=== PATIENT | female | born 2000 | race Caucasian/White ===

== ENCOUNTER 2019-12-11 23:13 | Emergency (ER) | payer SELFPAY ==
--- NOTE | ~2019-12-11 | XR_ITS ---
XR chest 2V DATE: 12/12/2019 00:23 INDICATION: Cough, difficulty breathing TECHNIQUE: PA and lateral views COMPARISON: None FINDINGS: Normal heart size. No hilar or mediastinal enlargement. No pulmonary infiltrate or consolid ation, pleural effusion or pulmonary vascular congestion or pneumothorax. IMPRESSION: No active cardiopulmonary disease Reviewed, dictated and finalized at location [facility]. [employer]
[2019-12-11 23:21] VITALS: BP 124/58; PULSE 130; RESP 16; TEMP 36.8; O2SAT 100
--- NOTE | 2019-12-12 00:01 | ED.URI ---
HPI - URI/Sore Throat General Chief Complaint: Upper Respiratory Infection Stated Complaint: im dying Time Seen by Provider: 12/11/19 23:24 Source: patient and RN notes reviewed Mode of arrival: ambulatory Limitations: no limitations History of Present Illness HPI Narrative: Pt is a 19 y/o female who presents to the ED with c/o flu-like symptoms starting this morning. She notes that she has had a cough, sinus congestion, severe body aches, nausea, and vomiting throughout the day today. Pt states that she also developed dysuria and intense diffuse back pain this afternoon. She currently denies any fever. Pt states that there is no chance of her being . MD elicited complaint: other (Flu-like symptoms) Onset (ago): day(s) (1) Associated symptoms: myalgias, nasal congestion, cough, nausea, vomiting, dysuria and other (diffuse back pain) Related Data Allergies Allergy/AdvReac Type Severity Reaction Status Date / Time No Known Allergies Allergy Unverified 12/25/17 09:09 Review of Systems Review of Systems: All systems reviewed & are unremarkable except as noted in HPI and below Constitutional: Constitutional: Reports body ache(s) and Denies fever(s) ENT: Reports nasal congestion Respiratory: Respiratory: Reports cough Gastrointestinal: Gastrointestinal: Reports nausea and Reports vomiting Genitourinary: Genitourinary: Reports dysuria Musculoskeletal: Musculoskeletal: Reports back pain (diffuse back pain) [facility] Past Medical History Medical History Healthy female Surgical History Surgical History History of ear surgery as child Social History Social History Smoking status: Never smoker Exam Const: General: cooperative, healthy appearing, comfortable, no acute distress, well developed, alert and awake; No confusion Orientation/consciousness: oriented to person, oriented to place, oriented to time, patient oriented x3 and No confusion Limitations: no limitations Neck: Neck: normal visual inspection Resp: Effort & Inspection: normal respiratory effort, able to speak in complete sentences, no respiratory distress and not tachypneic Auscultation: clear to auscultation bilaterally, no crackles, no rales, no rhonchi and no wheezes Cardio: Rate: regular rate Rhythm: regular rhythm GI: Inspection: normal to inspection GI Palp: No abdominal tenderness, Yes Soft to palpation, No Tenderness to palpation present (GI), No Guarding due to palpation present (GI), No Rigid due to palpation and No Rebound tenderness present Auscultation: normal bowel sounds : General: Yes no CVA tenderness Skin: General skin exam: normal color, no rashes or lesions noted, elasticity normal and turgor normal Neuro: General: oriented to person, oriented to place, oriented to time, patient oriented x3, tone normal, moves all extremities and No confusion Speech: No Abnormal speech present Sensory Exam: No Sensory deficit (Neuro) Extrem: General: normal to inspection, full ROM and capillary refill normal Psych: Appearance: grossly normal and well kempt Mental Status: mental status grossly normal Speech and movement: Normal speech and movement present Affect: normal affect Attitude: cooperative Thought process: Normal thought process present Thought content: Yes Normal thought content present Insight: Good insight present (Psych) Judgement: Good judgement present (Psych) Course Vital Signs Vital signs: Vital Signs Temperature 36.8 C 12/11/19 23:21 Pulse Rate 130 H 12/11/19 23:21 Respiratory Rate 16 12/11/19 23:21 Blood Pressure 124/58 L 12/11/19 23:21 Pulse Oximetry 100 12/11/19 23:21 Temperature 36.8 C 12/11/19 23:21 Pulse Rate 130 H 12/11/19 23:21 Respiratory Rate 16 12/11/19 23:21 Blood Pressure 124/58 L 12/11/19 23:21 Pulse Oximetry 100 12/11/19 23:21 MDM - URI/Sore Throat L
[2019-12-12 00:54] LABS: Add Urine Microscopic? YES; Appearance Urine Clear (Clear); Bacteria Urine Trace /hpf; Bilirubin Urine Negative (Negative); Blood Urine Negative (Negative); Color Urine Yellow (Yellow); Glucose Urine UA Negative (Negative); Ketones Urine 1+ mg/dL (Negative); Leukocyte Esterase Ur Negative LEU/UL (Negative); Mucus Urine Few /lpf; Nitrate Urine Negative (Negative); Protein Urine Negative (Negative); RBC Urine 0-2 /hpf (0-2); Specific Grav Ur 1.028 (1.001-1.035); Squamous Epithelial Cell Urine Few /hpf (Few); Urobilinogen Urine Negative mg/dL (<2.0)
== END 2019-12-12 01:08 | disposition home or self-care (01) ==
PROVIDERS: Emergency Provider Emergency Medicine
DX: J06.9 Acute upper respiratory infection, unspecified (principal)
CPT/HCPCS: 71046; 81001; 81025; 87804; 99283

== ENCOUNTER 2021-06-18 18:53 | Emergency (ER) | payer OTHER, SELFPAY ==
--- NOTE | ~2021-06-18 | US_ITS ---
US OB <=14 wk fetus w TV DATE: 06/18/2021 20:20 INDICATION: Vaginal bleeding in TECHNIQUE: Real-time imaging via transabdominal and transvaginal approaches COMPARISON: None FINDINGS: The uterus measures 9.3 centers height, 4.3 cm anteroposterior and 5.5 cm transverse dimens ion. An intrauterine gestational sac is identified. There is suboptimal hyperechogenicity consistent with suboptimal decidual reaction at the perimeter of the gestational sac pole is detected, measurin g 1.7 cm. No cardiac motion however is noted. Yolk sac is noted. There is heterogeneous hypoechoic appearance subchorionic hematoma Gooding-rump length of 1.73 cm is consistent with estimated gestational age of 8 weeks 1 day +/- 5 days with LOYDA of 01/27/2022 Right ovary 2.8 x 2.0 x 2.1 cm, 1.5 cm cyst. The left ovary is not visualized. No abnormal pelvic red e fluid collection. IMPRESSION: Subchorionic hematoma. No definite cardiac motion is apparent; recommend short-term follow-up ultrasound imaging to evaluate viability. Reviewed, dictated and finalized at [facility]. Reviewed, dictated and finalized at location [facility]. IMPRESSION: Subchorionic hematoma. No definite cardiac motion is apparent ; recommend short-term follow-up ultrasound imaging to evaluate viability .
[2021-06-18 18:55] VITALS: BP 151/100; PULSE 115; RESP 16; TEMP 37.3; O2SAT 99
--- NOTE | 2021-06-18 19:58 | PC.NURSE ---
Patient taken to US.
[2021-06-18 20:33] VITALS: BP 146/86; PULSE 104; RESP 18; O2SAT 100
[2021-06-18 20:46] LABS: Basophils Percent Auto 0.4 % (0.2-1.2); Eosinophils Absolute Auto 0.1 K/mm3 (0-0.3); Eosinophils Percent Auto 1.1 % (0-4.4); Hematocrit 37.7 % (37.0-47.0); Hemoglobin 12.1 g/dL (12.0-15.0); Immature Granulocyte Absolute 0.03 K/mm3 (0.00-0.031); Immature Granulocyte Percent A 0.3 % (0-0.5); Lymphocytes Absolute Auto 3.58 K/mm3 (0.9-3.2); Lymphocytes Percent Auto 38.5 % (18.3-44.2); Mean Corpuscular HGB Conc 32.1 g/dl (32-36); Mean Corpuscular Hemoglobin 24.5 pg (26-34); Mean Corpuscular Volume 76.3 fl (80-100); Mean Platelet Volume 11.1 fl (7.4-10.4); Monocytes Absolute Auto 0.5 K/mm3 (0.1-0.6); Monocytes Percent Auto 5.8 % (2.6-8.5); Neutrophils Percent Auto 53.9 % (45.5-73.1); Platelet Count Result 249 k/mm3 (150-375); Red Blood Count 4.94 M/mm3 (4.2-5.4); Red Cell Distribution Width 16.6 % (11.5-14.5); White Blood Count 9.3 K/mm3 (4.5-10.0)
[2021-06-18 21:04] LABS: Prothrombin Time 12.7 Seconds (11.1-14.7)
[2021-06-18 21:05] LABS: Partial Thromboplastin Time 26.9 SECONDS (22.3-36.8)
[2021-06-18 21:13] LABS: Alanine Aminotransferase 25 U/L (4-35); Albumin Level 4.4 g/dL (3.5-5.1); Alkaline Phosphatase 67 U/L (38-126); Anion Gap 11 mmol/L (8-16); Aspartate Amino Transferase 24 U/L (14-36); Bilirubin,Total 0.2 mg/dL (0.2-1.3); Blood Urea Nitrogen 11 mg/dL (7-17); Calcium 9.3 mg/dL (8.4-10.2); Carbon Dioxide 22 mmol/L (22-30); Chloride 102 mmol/L (98-107); Estimated CRCL calculation 177 ml/min; Estimated Glomerular Filt Rate > 60; Glucose 99 mg/dL (65-110); Potassium 3.5 mmol/L (3.4-5.0); Sodium 135 mmol/L (137-145)
--- NOTE | 2021-06-18 21:43 | ED.GENADULT ---
HPI - General Adult General Chief complaint: Vaginal Bleeding Stated complaint: miscarriage? Time Seen by Provider: 06/18/21 19:14 Source: patient Mode of arrival: ambulatory Limitations: no limitations History of Present Illness HPI narrative: Patient presents with chief complaint of vaginal bleeding that began on Sunday and has since increased. Patient states that she has informed her [employer] Dr. Saravia and she was told that it is normal to have the bleeding however when the bleeding increased on Sunday she was seen at [facility] ER. She reports imaging and hCG were told to be in normal levels. Patient states today she was in [place] and she began to have increase in bleeding and noticed a few blood clots with cramping so she became concerned and went to [facility] emergency room but the wait was too long so she left and presented to our emergency department. Patient is G2, P1. Patient has any fever, chills, vomiting, lethargy, purulent vaginal discharge. Related Data Allergies Allergy/AdvReac Type Severity Reaction Status Date / Time No Known Allergies Allergy Unverified 12/25/17 09:09 Review of Systems Review of Systems: CONSTITUTIONAL: Denies fever, chills, or sweats. EYES: Denies visual changes, redness, or discharge. ENT: Denies rhinorrhea, congestion, sore throat, or otalgia. CARDIOVASCULAR: Denies chest pain, palpitations, or edema. RESPIRATORY: Denies cough or dyspnea. GASTROINTESTINAL: Denies abdominal pain, nausea, vomiting, or diarrhea. GENITOURINARY: Reports vaginal bleeding denies dysuria or hematuria. SKIN: Denies rash or itching. MUSCULOSKELETAL: Denies back pain, joint pain, or myalgia. NEUROLOGIC: Denies headache, numbness, dizziness, or weakness. PSYCHIATRIC: Denies anxiety or depression. PMFSH Past Medical History Medical History (Updated 06/18/21 @ 22:13 by Gerardo Lozada PA-C) Healthy female Surgical History Surgical History History of ear surgery as child Social History Social History Smoking status: Never smoker Exam Narrative: GENERAL: Well-appearing, well-nourished, and in no acute distress. HEAD: Normocephalic, atraumatic. EYES: PERRLA and EOMI. NECK: Supple. No adenopathy or masses. CHEST: Clear to auscultation. No respiratory distress. No wheezes rales or rhonchi HEART: Regular rate and rhythm. No murmur heard. Normal peripheral pulses. ABDOMEN: Soft, nontender, nondistended, normal active bowel sounds. PELVIC: Mild to moderate bleeding from cervix. There is a few small blood clots noted in the vaginal canal. Cervix is closed. No tissue noted. EXTREMITIES: Normal range of motion. No edema. SKIN: Warm, dry, no rash. NEURO: No focal deficits. Alert and oriented x3. PSYCH: Normal mood and affect. Course Vital Signs Vital signs: Vital Signs Temperature 99.1 F 06/18/21 18:55 Pulse Rate 115 H 06/18/21 18:55 Respiratory Rate 16 06/18/21 18:55 Blood Pressure 151/100 H 06/18/21 18:55 Pulse Oximetry 99 06/18/21 18:55 Temperature 99.1 F 06/18/21 18:55 Pulse Rate 104 H 06/18/21 20:33 Respiratory Rate 18 06/18/21 20:33 Blood Pressure 146/86 H 06/18/21 20:33 Pulse Oximetry 100 06/18/21 20:33 Medical Decision Making MDM Narrative Medical decision making narrative: Consult with Dr. Arthur who is on-call for Dr. Saravia [employer]. It seems that with the patient being in week 8 and having prior heart activity did take the and not seen heart activity detected at this time that the is not viable. He states that have the patient go to her ultrasound appointment on Sunday and call their office to follow-up with Dr. Saravia for the next steps which would likely be a D&C. Patient has been instructed to return to emergency department if she has any profuse bleeding, dizziness, chest pain, shortness of breath or any other emergent
== END 2021-06-18 22:46 | disposition home or self-care (01) ==
PROVIDERS: Physician Assistant; Emergency Provider Emergency Medicine
DX: O03.4 Incomplete spontaneous abortion without complication (principal)
CPT/HCPCS: 36415; 76801; 76817; 80053; 84702; 85025; 85610; 85730; 86850; 86900; 86901; 99284

== ENCOUNTER 2022-04-11 11:05 | Outpatient (CLI) | payer BC, OTHER, SELFPAY ==
[2022-04-11 12:07] LABS: Beta HCG Quantitative 22.67 mIU/ML
== END 2022-04-11 11:06 | disposition home or self-care (01) ==
PROVIDERS: Visit Provider Obstetrics & Gynecology
DX: Z98.890 Other specified postprocedural states (principal)
CPT/HCPCS: 36415; 84702

== ENCOUNTER 2024-03-21 19:14 | Emergency (ER) | payer BC, OTHER, SELFPAY ==
--- NOTE | ~2024-03-21 | CT_ITS ---
EXAMINATION: CT abdomen pelvis w con DATE: 03/21/2024 22:04 INDICATION: abdominal pain TECHNIQUE: Computed tomography (CT) of the abdomen and pelvis was performed with 100 mL Omnipaque-350 intravenous contrast. Automated exposure control and iterative reconstruction technique were employe d. The dose-length product was 1591.52 mGy-cm. COMPARISON: None. FINDINGS: Lower thorax: Unremarkable Liver: Normal. Biliary/Gallbladder: Gallbladder is normal. No bile duct dilation. Pancreas: No mass or duct dilation. Spleen: Normal. Adrenals:No mass. Kidneys: No suspicious mass, obstructing stone, or hydronephrosis. GI tract: No small or large bowel dilation. Normal appendix. Mesentery/Peritoneum: No ascites, mass, or free air. Retroperitoneum: No mass. Pelvis: Pelvic organs are within normal limits. Right corpus luteal cyst. Simple ovarian cyst or lydia nant follicle. Soft Tissues: Soft tissues and body wall unremarkable. Bones: No acute osseous finding. IMPRESSION: No acute abdominopelvic process detected. Reviewed, dictated and finalized at location K.
[2024-03-21 19:19] VITALS: BP 150/78; PULSE 132; RESP 19; TEMP 36.6; O2SAT 97
--- NOTE | 2024-03-21 19:39 | ED.GENADULT ---
HPI - General Adult General Chief complaint: Abdominal Pain Stated complaint: abd pain Time Seen by Provider: 03/21/24 19:18 History of Present Illness HPI narrative: Patient is a 23-year-old female who presents emergency department with chief complaint of right lower quadrant pain. Patient reports that this morning she started having pain described as an aching throbbing like pain the patient reports no nausea no vomiting denies urinary symptoms reports her last menstrual period was about a week ago was little heavier than normal but not out of the normal. Patient denies diarrhea reports no prior abdominal surgery Related Data Allergies Allergy/AdvReac Type Severity Reaction Status Date / Time No Known Allergies Allergy Verified 03/21/24 19:24 Review of Systems Review of Systems: A 10 system review of systems was completed on the patient and is negative except for what is stated in the HPI. Nursing and ancillary documentation was reviewed. [facility], [facility] Past Medical History Medical History Depression Encounter for Nexplanon removal 05/2016 Encounter for removal of intrauterine contraceptive device Healthy female Insertion of Nexplanon 03/2016 Sexually transmissible disease Surgical History Surgical History H/O gynecological procedure mirena iud insertion 09/20/2022 History of ear surgery as child Family History Family History Other Diabetes mellitus Social History Social History Smoking status: Never smoker Exam Narrative: GENERAL: Well-appearing, well-nourished, and in no acute distress. HEAD: Normocephalic, atraumatic. EYES: PERRLA and EOMI. ENT: Nares clear, no rhinorrhea or epistaxis. Mucous membranes moist. NECK: Supple. CHEST: Clear to auscultation. No respiratory distress. HEART: Regular rate and rhythm. No murmur heard. Normal peripheral pulses. ABDOMEN: Soft, tenderness to palpation right lower quadrant, nondistended, normal active bowel sounds. EXTREMITIES: Normal range of motion. No edema. SKIN: Warm, dry, no rash. NEURO: No focal deficits. Alert and oriented x3. PSYCH: Normal mood and affect. Course Vital Signs Vital signs: Vital Signs Temperature 36.6 C 03/21/24 19:19 Pulse Rate 132 H 03/21/24 19:19 Respiratory Rate 03/21/24 19:19 Blood Pressure 150/78 H 03/21/24 19:19 Pulse Oximetry 97 03/21/24 19:19 Oxygen Delivery Room Air 03/21/24 19:19 Temperature 36.6 C 03/21/24 19:19 Pulse Rate 132 H 03/21/24 19:19 Respiratory Rate 03/21/24 19:19 Blood Pressure 150/78 H 03/21/24 19:19 Pulse Oximetry 97 03/21/24 19:19 Oxygen Delivery Room Air 03/21/24 19:19 Medical Decision Making MDM Narrative Medical decision making narrative: differential diagnosis includes UTI, colitis, diverticulitis, pancreatitis, laboratory studies were obtained on the patient showed a white count of 11.2 electrolytes were within normal limits urinalysis was turbid 51-100 white blood cells in the urine 2+ leukocyte esterase and 4+ bacteria. CT scan of the abdomen pelvis showed FINDINGS: Lower thorax: Unremarkable Liver: Normal.? Biliary/Gallbladder: Gallbladder is normal. No bile duct dilation. Pancreas: No mass or duct dilation. Spleen: Normal. Adrenals:No mass. Kidneys: No suspicious mass, obstructing stone, or hydronephrosis. GI tract: No small or large bowel dilation. Normal appendix. Mesentery/Peritoneum: No ascites, mass, or free air. Retroperitoneum: No mass. Pelvis: Pelvic organs are within normal limits. Right corpus luteal cyst. Simple ovarian cyst or dominant follicle. Soft Tissues: Soft tissues and body wall unremarkable. Bones:? No acute osseous finding. IMPRESSION: No acute abd
[2024-03-21] MEDS: MORPHINE SULFATE (*CRX) 4 MG/ML INJ IV PUSH (19:44)
[2024-03-21] MEDS: SODIUM CHLORIDE 0.9% IV 1,000 ML 999 ML IV CONT ×2 (19:44→22:06)
[2024-03-21] MEDS: ONDANSETRON INJ 4 MG/2 ML VIAL IV PUSH (19:44)
[2024-03-21 19:52] LABS: Basophils Absolute Auto 0.1 K/mm3 (0.0-0.1); Basophils Percent Auto 0.5 % (0.2-1.2); Eosinophils Absolute Auto 0.2 K/mm3 (0-0.3); Eosinophils Percent Auto 1.4 % (0-4.4); Hematocrit 41.1 % (37.0-47.0); Hemoglobin 13.3 g/dL (12.0-15.0); Immature Granulocyte Absolute 0.04 K/mm3 (0.00-0.031); Immature Granulocyte Percent A 0.4 % (0-0.5); Lymphocytes Percent Auto 31.3 % (18.3-44.2); Mean Corpuscular HGB Conc 32.4 g/dl (32-36); Mean Corpuscular Hemoglobin 25.4 pg (26-34); Mean Corpuscular Volume 78.4 fl (80-100); Mean Platelet Volume 11.8 fl (7.4-10.4); Monocytes Percent Auto 8.6 % (2.6-8.5); Neutrophils Absolute Auto 6.5 K/mm3 (1.3-6.7); Neutrophils Percent Auto 57.8 % (45.5-73.1); Platelet Count Result 296 k/mm3 (150-375); Red Blood Count 5.24 M/mm3 (4.2-5.4); Red Cell Distribution Width 15.5 % (11.5-14.5); White Blood Count 11.2 K/mm3 (4.5-10.0)
[2024-03-21 20:02] LABS: Alanine Aminotransferase 26 U/L (6-35); Albumin Level 4.4 g/dL (3.5-5.1); Alkaline Phosphatase 79 U/L (38-126); Anion Gap 9 mmol/L (4-12); Aspartate Amino Transferase 22 U/L (14-36); Bilirubin,Total 0.4 mg/dL (0.2-1.3); Blood Urea Nitrogen 16 mg/dL (7-17); Calcium 9.4 mg/dL (8.4-10.2); Carbon Dioxide 22 mmol/L (22-30); Chloride 110 mmol/L (98-107); Estimated CRCL calculation 180 ml/min; Estimated Glomerular Filt Rate > 60; Glucose 98 mg/dL (65-110); Lipase 347 U/L (23-300); Potassium 3.6 mmol/L (3.4-5.0); Sodium 141 mmol/L (137-145)
[2024-03-21 21:55] LABS: Appearance Urine Turbid (Clear); Bacteria Urine 4+ /hpf; Bilirubin Urine Negative (Negative); Blood Urine Negative (Negative); Color Urine Yellow (Yellow); Glucose Urine UA Negative (Negative); Ketones Urine Trace mg/dL (Negative); Leukocyte Esterase Ur 2+ LEU/UL (Negative); Nitrate Urine Negative (Negative); Non Pathogenic Casts 0-2; Protein Urine Trace mg/dL (Negative); Squamous Epithelial Cell Urine Many /hpf (Few); Urobilinogen Urine 0.2 mg/dL (<2.0); WBC Urine 51-100 /hpf (0-3); pH Urine 5.5 (5.0-9.0)
[2024-03-21 21:56] LABS: Specific Grav Ur 1.035 (1.001-1.035)
[2024-03-21 21:57] LABS: Add Urine Microscopic? YES
[2024-03-21 22:00] VITALS: BP 137/78; PULSE 98; RESP 14; O2SAT 98
[2024-03-21 23:26] VITALS: PULSE 68; RESP 16; O2SAT 98
== END 2024-03-21 23:26 | disposition home or self-care (01) ==
PROVIDERS: Emergency Provider Emergency Medicine
DX: N39.0 Urinary tract infection, site not specified (principal); R10.31 Right lower quadrant pain
CPT/HCPCS: 36415; 74177; 80053; 81001; 81025; 83690; 85025; 87086; 87088; 96361; 96365; 96375; 99284; J0696; J2270; J2405; J7030; Q9967